=== PATIENT | female | born 1995 | race Caucasian/White ===

== ENCOUNTER 2017-03-18 17:09 | Emergency (ER) | payer BC, OTHER ==
[~2017-03-18] VITALS: Ht 174 cm; Wt 68.8 kg
[~2017-03-18 17:09] MED LIST: FLNCV PO
[2017-03-18 17:17] VITALS: TEMP 36.8; Ht 174 cm; Wt 68.8 kg
[2017-03-18] MEDS ORDERED: MULT-506 PO (17:26)
--- NOTE | 2017-03-18 18:15 | DIAGNOSTIC IMAGING REPORT ---
CT HEAD WITHOUT CONTRAST (CT) CLINICAL HISTORY: Head trauma. Amnesia. Possible concussion. COMPARISON STUDY: No previous studies for comparison. TECHNIQUE: Axial CT of the brain is performed from the vertex to the skull base. IV contrast was not administered for this examination. A dose lowering technique was utilized adhering to the principles of ALARA. CT DOSE: 537.48 mGy.cm FINDINGS: No intra or extra-axial mass lesions are visualized. There is no CT evidence of acute cortical infarction. There is no evidence of midline shift. There is no acute hemorrhage. No calvarial fractures are visualized. There is no evidence of pathologic ventricular dilatation. There is no evidence of acute sinusitis IMPRESSION: Normal noncontrast head CT. Electronically signed by: Enzo Peters M.D. 03/18/2017 6:14 PM Dictated Date/Time: 03/18/2017 6:13 PM
[2017-03-18 19:01] VITALS: BP 115/66; PULSE 70; O2SAT 99
--- NOTE | 2017-03-19 00:14 | EMERGENCY ROOM VISIT NOTE ---
ED Visit Note First contact with patient: 17:18 Chief Complaint: Head injury. History of Present Illness: Ms. Lundy is a 21-year-old white female who ambulates into the ED accompanied by her mother complaining of a head injury. Patient and mother reports approximately 30 minutes prior to arrival at the hospital patient was playing soccer. She reports she slipped and fell and struck the frontal area of her head on the ground. At the time of the injury there was no loss of consciousness but mother reports watching her daughter standouts and she appeared dazed. In the last 30 minutes patient has had amnesia to the fall, advanced approximately one hour before the fall and most of the events after the fall. Additionally she is complaining of a frontal headache. She describes the discomfort as a pressure sensation. She rates her discomfort 1/10. Her pain is nonradiating she's not identified any aggravating or alleviating factors related to the pain. She has not taken any medications for pain prior to arrival at the hospital. Additionally mother reports she does not appear her normal self. Associated with her pain patient reports she's been nauseated but has not vomited. Patient denies dizziness, lightheadedness, visual changes, hearing changes, difficulty speaking, difficulty swallowing, difficulty walking/coordinating body movements, neck pain, back pain, chest pain, shortness of breath, abdominal pain, nausea/vomiting, extremity weakness/numbness/tingling. Review of Systems: As noted above in history of present illness. All body systems were reviewed and found to be negative as noted above. Past Medical History: Status post tonsillectomy, possible malignant hyperthermia. Current Medications: Multivitamins. Allergies to Medications: Patient mother denied. Social History: Patient is currently employed; she feels safe in her home environment; she denies tobacco use. Physical Examination: Vital Signs: Date Time Temp Pulse Resp B/P (MAP) Pulse Ox O2 Delivery O2 Flow Rate FiO2 03/18/17 19:01 70 18 115/66 99 18 17:17 36.8 87 16 114/77 100 Room Air GENERAL: 21-year-old female in mild distress due to symptoms, nontoxic-appearing , afebrile and hemodynamically stable. Patient is intermittently tearful. NEUROLOGICAL: Awake, alert and oriented to person, place and time. Answering questions appropriately and following commands. Normal gait. Good hand eye coordination. No focal motor or sensory deficits. Cranial nerves II through XII grossly intact. Normal rapid alternating movements of the hands and fingers. Normal zarate test. Good long-term recall and poor short-term recall. SKIN: Warm, dry and pink. No soft tissue trauma noted. HEENT: Atraumatic and normocephalic. Skull: No bony deformity, tenderness, swelling or ecchymosis. No raccoon's eyes or nieves signs. No drainage in the ears or nares; no hemotympanum. Face: No bony deformity, bony crepitus, swelling or ecchymosis. PERRLA. EOMI without nystagmus. Sclera white and conjunctiva pink. No malocclusion. No intraoral trauma. Airway patent. Speech is normal and clear. Trachea midline. No jugular venous distention. BACK: No tenderness over the bony cervical and thoracic spine. Full range of motion of the cervical spine. EXTREMITIES: Moves all extremities well on command and with purpose. All distal neurovascular statuses are intact and equal bilaterally. 5/5 muscle strength in all movements of the shoulders, elbows, forearms, wrists, hips, knees and ankles. ED Course: Patient is assessed as noted above. Patient's medication list was reviewed. Patient was offered pain medications and refused. Head CT: Was reviewed by myself and read by the radiologist showing no acute cranial abnormalities or skull fractures. Patient parents are educated about today's findings and instructed on her treatment plan; they verbalized understanding and agreement with this plan. Clinical Impression: Concussion. Disposition: Patient discharged home in stable condition accompanied by her parents; prior to departure she was reassessed and subjectively reported she was feeling the same. Plan: Comfort measures, rest, no sports, no alcohol and follow-up with concussion clinic was recommended for the patient. Parents and patient were educated on signs of worsening head injury encouraged return to the ED for signs of worsening or any new/concerning symptoms.
== END 2017-03-18 19:03 | disposition home or self-care (01) ==
LOC: C.EDB 17:10 → C.EDD 19:03
DX: S06.0X0A Concussion without loss of consciousness, initial encounter (principal); W01.0XXA Fall on same level from slipping, tripping and stumbling without subsequent striking against object, initial encounter; W21.02XA Struck by soccer ball, initial encounter